=== PATIENT | female | born 1980 | race African-American/Black ===

== ENCOUNTER 2021-11-16 20:32 | Emergency (ER) | payer OTHER, SELFPAY ==
[2021-11-16] VITALS (18 sets, daily range): BP systolic 98–142; BP diastolic 54–94; PULSE 110–128; RESP 17–31; TEMP 38.8–39.4; O2SAT 93–99; BMI 46.0
--- NOTE | 2021-11-16 20:45 | DI.RAD.S_ITS ---
PROCEDURE: XR CHEST 1V INDICATIONS: sepsis TECHNIQUE: One view of the chest was acquired. COMPARISON: None. FINDINGS: Surgical changes and devices: None. Lungs and pleura: Lungs are clear. No pleural effusions or pneumothorax. Mediastinum: Mediastinal contours appear normal. Heart size is normal. Bones and chest wall: No suspicious bony lesions. Overlying soft tissues appear unremarkable. IMPRESSION: No acute cardiopulmonary process demonstrated radiographically. Dictated by: Justo Cardoza M.D. on 11/16/2021 at 22:07 Approved by: Justo Cardoza M.D. on 11/16/2021 at 22:07
--- NOTE | 2021-11-16 21:00 | PC.NURSE ---
thinks she might have a kidney infection, hx of same, c/o decreased urine output and burning took tylenol about 1800 this pm
--- NOTE | 2021-11-16 21:04 | PC.NURSE ---
In triage, pt does not appear post-ictal. Pt answering all questions appropriately and following commands. Once pt roomed in room 2, pt began arching her back and rolling her eyes back. Pt was verbal during this and followed basic commands. Pt states this is what her seizures looked like at home.
[2021-11-16 21:08] LABS: Add Manual Diff / Slide Review NO; Basophils Absolute Auto 0 /uL (0-100); Basophils Percent Auto 0.2 % (0-2); Eosinophils Absolute Auto 100 /uL (0-450); Eosinophils Percent Auto 1.6 % (2-4); Hematocrit 35.9 % (36-46); Hemoglobin 12.2 g/dL (12.0-16.0); Lymphocytes Absolute Auto 700 /uL (1100-4500); Lymphocytes Percent Auto 11.9 % (25-40); Mean Corpuscular HGB Conc 33.9 % (30-36); Mean Corpuscular Volume 82.6 fL (80-100); Monocytes Absolute Auto 400 /uL (0-900); Monocytes Percent Auto 7.3 % (3-14); Neutrophils Absolute Auto 4800 /uL (1500-7000); Platelet Count 269 X10^3/uL (150-400); Red Blood Cell Count 4.34 X10^6/uL (4.0-5.2); Red Cell Distribution Width 14.9 % (11.6-14.8); White Blood Cell Count 6.1 X10^3/uL (4.5-11.0)
[2021-11-16] MEDS: cefTRIAXone 2,000 MG in SODIUM CHLORIDE 0.9% 100 ML 200 MG IV (21:17)
[2021-11-16] MEDS: KETOROLAC 30 MG/ML VIAL 15 MG IV (21:20)
[2021-11-16] MEDS: SODIUM CHLORIDE 0.9% 1,572 ML 524 ML IV (21:20)
--- NOTE | 2021-11-16 21:25 | PC.NURSE ---
straight cath for urine specimen only
[2021-11-16 21:31] LABS: Lactate (Lactic Acid) 2.7 mmol/L (0.7-2.1)
[2021-11-16 21:33] LABS: Alanine Aminotransferase 17 IU/L (<35); Albumin 4.1 g/dL (3.5-5.0); Albumin Globulin Ratio 1.4 (1.0-2.8); Alkaline Phosphatase 58 U/L (38-126); Aspartate Aminotransferase 25 IU/L (14-36); BUN Creatinine Ratio 22.9 (6-22); Bilirubin Total 0.2 mg/dL (0.2-1.3); Blood Urea Nitrogen 19 mg/dL (7-17); Calcium 8.7 mg/dL (8.4-10.2); Carbon Dioxide 22 mmol/L (22-32); Chloride 99 mmol/L (98-107); Creatine Kinase 71 U/L (30-135); Estimated Glomerular Filt Rate > 60 mL/min (>60); Globulin 2.9 g/dL (1.7-4.1); Glucose 115 mg/dL (70-100); HEMOLYSIS 20 (0-50); Lipase 52 U/L (23-300); Potassium 4.3 mmol/L (3.4-5.1); Sodium 134 mmol/L (137-145)
[2021-11-16 21:35] LABS: Appearance Urine UA CLEAR; Bilirubin Urine UA NEGATIVE (NEGATIVE); Color Urine UA YELLOW; Glucose Urine UA NEGATIVE (Negative); Ketones Urine UA NEGATIVE (NEGATIVE); Leukocyte Esterase Urine UA NEGATIVE (NEGATIVE); Nitrite Urine UA NEGATIVE (Negative); Occult Blood Urine UA NEGATIVE (Negative); Protein Urine UA NEGATIVE (Negative); Urobilinogen Urine UA 0.2 E.U./dL (0.2)
[2021-11-16 21:37] LABS: pH Urine UA 7.5 (4.5-8.0)
[2021-11-16 21:41] LABS: Bacteria Urine None Seen; Culture Indicated Urine Cult Not Indicated; RBC Urine None Seen (0-5/HPF); Squamous Epithelial Cell Urine 0-1 /HPF (0-5/HPF); Urine Comments Microscopic Normal; WBC Urine None Seen (0-5/HPF)
[2021-11-16 21:44] LABS: Troponin I < 0.012 ng/mL (0.01-0.034)
--- NOTE | 2021-11-16 21:47 | DI.CT.S_ITS ---
PROCEDURE: CT CHEST ABD PEL W CON INDICATIONS: severe sepsis, back pain, dysuria TECHNIQUE: After the administration of intravenous contrast, 5 mm thick sections acquired from the lung apices to the symphysis. 2.5 mm thick coronal and sagittal reformats were acquired. Additional 7 mm thick coronal maximum intensity projection (MIP) reformats acquired through the lungs. Optional 10-minute delayed imaging may be performed from the kidneys to the bladder. For radiation dose reduction, the following was used: automated exposure control, adjustment of mA and/or kV according to patient size. COMPARISON: None. FINDINGS: Image quality: Excellent. CHEST: The central airways, lungs, and pleural spaces are clear. No thoracic lymphadenopathy. Normal heart size. No pericardial effusion. Thoracic aorta and main pulmonary trunk normal. Partially visualized structures of the neck base demonstrate no acute abnormality. No acute or suspicious osseous chest wall lesion. Thoracic spine within normal limits. ABDOMEN: Normal CT appearance of the liver, gallbladder, spleen, pancreas, and adrenal glands. In both kidneys there are nonspecific cystic lesions with associated renal cortical thinning and dystrophic calcifications. Findings presumably represent sequela of chronic obstruction although multi-cystic neoplastic masses could appear similar. There is otherwise no significant abnormality of the kidneys. Normal course and caliber of the ureters. No significant abnormality of stomach, small bowel, or colon. No pericolonic or mesenteric inflammatory changes. Nonaneurysmal abdominal aorta. No retroperitoneal lymphadenopathy. PELVIS: Urinary bladder is normal. Hypodense left ovarian lesions likely represent cysts. Status post hysterectomy. Pelvic osseous structures appear normal. IMPRESSION: Multi septated cystic lesions in the upper pole kidneys bilaterally, larger and more conspicuous on the left, with associated cortical thinning dystrophic calcification. This could represent sequela of prior infection and scarring, versus a component of acute obstruction or infection. Although considered unlikely, cystic neoplasm would appear similar. Correlate with urinalysis and any prior outside imaging if available. No significant abnormality otherwise. Dictated by: Justo Cardoza M.D. on 11/16/2021 at 23:29 Approved by: Justo Cardoza M.D. on 11/16/2021 at 23:33
[2021-11-16 21:49] LABS: Procalcitonin 0.05 ng/mL (<0.5)
[2021-11-16 22:06] LABS: Pregnancy Test Urine Negative (Negative)
--- NOTE | 2021-11-16 22:13 | ED.SEPSIS ---
HPI - Sepsis General Chief Complaint: Fever Mode of arrival: Wheelchair Source: patient Limitations: no limitations Evaluation Sepsis Screen: Possible Sepsis Risk Sepsis Infection Criteria Present: Suspected New Infection Narrative: 40-year-old female daily smoker presents with her and a chief complaint of headache, nasal congestion, sore throat, dry cough, shortness of breath and feeling shaky and nauseated over the course of the day. She did have a fever as high as 103. On arrival she is tachycardic and tachypneic and sepsis protocols are ordered. She denies vomiting, diarrhea, dysuria, frequency or urgency. She states she is had many urine infections in this feels similar. Review of Systems Review of Systems Narrative: GENERAL: See HPI ENT: See HPI RESPIRATORY: See HPI CARDIOVASCULAR: Denies chest pain, palpitations, orthopnea, edema, GASTROINTESTINAL: See HPI : See HPI MUSCULOSKELETAL: denies weakness, joint pain, or bony pain SKIN: Denies rash, skin lesions, or other NEUROLOGIC: Denies weakness, headache, numbness, change in speech, confusion, seizures, incoordination. PSYCHIATRIC: No concerning psychosocial issues. 12 point review of systems is negative except for those stated above Patient History Social History Smoking Status: Current every day smoker Smoking Status: Current every day smoker tobacco type: cigarettes alcohol intake frequency: 0-2 drinks per day Substance Use Type: does not use Exam Narrative Exam Narrative: GENERAL: [40] year old patient appears stated age. Well-developed patient, in mild distress. HEAD: Atraumatic. Normocephalic. EYES: Pupils equal round and reactive. Extraocular motions intact. No scleral icterus. No injection or drainage. ENT: Nose without bleeding, purulent drainage. Throat without erythema, tonsillar hypertrophy or exudate. Airway patent. NECK: Trachea midline. Non tender CARDIOVASCULAR: Tachycardic but regular rhythm without murmurs, gallops, or rubs. RESPIRATORY: Increased work of breathing, occasional dry cough, no wheezes, rales or rhonchi GASTROINTESTINAL: Abdomen soft, non-tender, nondistended. EXTREMITIES: No edema or joint tenderness. BACK: Nontender without deformity or crepitance. No flank tenderness. NEURO: AOx3. SKIN: No rash or erythema of visible areas Initial Vital Signs Initial Vital Signs: Vital Signs Temperature 103 F H 11/16/21 20:35 Pulse Rate 128 H 11/16/21 20:35 Respiratory Rate 26 H 11/16/21 20:35 Blood Pressure 119/68 11/16/21 20:35 Pulse Oximetry 98 11/16/21 20:35 Oxygen Delivery Method 11/16/21 20:35 Course Orders Ordered: ED Orders 11/16/21 20:41 RT Consult Eval and Treat NOW 11/16/21 20:45 XR chest 1V Stat 11/16/21 20:48 EKG-12 Lead Stat 11/16/21 20:50 Blood Culture Stat Complete Blood Count AUTO DIFF Stat Comprehensive Metabolic Panel Stat Lactate (Lactic Acid) Stat Lipase Stat Procalcitonin Stat Troponin & CK Cardiac Panel Stat 11/16/21 21:10 Test Urine Stat Urinalysis and Microscopic Stat 11/16/21 21:47 CT chest abd pel w con Stat 11/16/21 21:50 COVID19 -Nasal RAPID/Pre-Proc Stat Discontinued Medications Sodium Chloride (Normal Saline 0.9%) 1,000 mls @ 1,000 mls/hr IV BOLUS ONE Stop: 11/16/21 21:40 Sodium Chloride (Normal Saline 0.9%) 1,572 mls @ 524 mls/hr 30 ml/kg infuse over 3 hr (1572 ml) IV NOW ONE Stop: 11/16/21 23:44 Last Infusion: 11/16/21 23:37 Dose: 0 mls/hr Documented By: Admin: 11/16/21 21:20 Dose: 524 mls/hr Documented By: ZAID Ceftriaxone Sodium 2,000 mg/ (Sodium Chloride) 100 mls @ 200 mls/hr IV NOW ONE Stop: 11/16/21 20:46 Last Infusion: 11/16/21 21:45 Dose: 0 mls/hr Documented By: Admin: 11/16/21 21:17 Dose: 200 mls/hr Documented By: ZAID Ketorolac Tromethamine (Ketorolac 30 Mg/Ml Vial) 15 mg IV NOW ONE Stop: 11/16/21 20:46 Last Admin: 11/16/21 21:20 Dose: 15 mg Documented By: ZAID Reevaluation(s) Reevaluation #1: Patient has significant if not complete resolution of symptoms with above-stated therapies Vital Signs Vital signs: Vital Signs - 8 hr 11/16/21 20:57 11/16/21 20:57 11/16/21 21:00 Temperature Pulse Rate 120 H Respiratory Rate Blood Pressure 135/71 135/80 Pulse Oximetry 97 11/16/21 21:00 11/16/21 21:15 11/16/21 21:24 Temperature Pulse Rate 126 H 122 H Respiratory Rate Blood Pressure 133/82 Pulse Oximetry 98 99 11/16/21 21:24 11/16/21 21:30 11/16/21 21:30 Temperature Pulse Rate 123 H 120 H Respiratory Rate 24 20 Blood Pressure 138/75 Pulse Oximetry 98 98 11/16/21 21:45 11/16/21 21:45 11/16/21 21:47 Temperature 103 F H Pulse Rate 120 H Respiratory Rate 18 Blood Pressure 124/57 L Pulse Oximetry 94 11/16/21 21:45 11/16/21 22:00 11/16/21 22:00 Temperature 103 F H Pulse Rate 119 H Respiratory Rate 17 Blood Pressure 120/66 Pulse Oximetry 96 11/16/21 22:15 11/16/21 22:15 11/16/21 22:30 Temperature Pulse Rate 119 H Respiratory Rate Blood Pressure 125/71 122/69 Pulse Oximetry 94 11/16/21 22:30 11/16/21 22:45 11/16/21 22:45 Temperature Pulse Rate 115 H 111 H Respiratory Rate 31 H Blood Pressure 111/61 Pulse Oximetry 93 94 11/16/21 23:02 11/16/21 23:03 11/16/21 23:03 Temperature 101.8 F H Pulse Rate 110 H 111 H Respiratory Rate 20 Blood Pressure 101/59 L Pulse Oximetry 98 98 11/16/21 23:15 11/16/21 23:15 11/16/21 21:41 Temperature Pulse Rate 116 H 110 H Respiratory Rate 28 H 18 Blood Pressure 98/54 L 142/94 H Pulse Oximetry 97 99 Sepsis Guideline Criteria Level 1 - Infection Sepsis Infection Criteria Present: Suspected New Infection Treatment Initiated Antibiotics:: IV antimicrobials will be initiated as soon as possible after recognition of sepsis state and within one hour for both sepsis and septic shock. MDM - Sepsis Lab Data Result diagrams: 11/16/21 20:50 11/16/21 20:50 Labs: Lab Results 11/16/21 11/16/21 11/16/21 Range/Units 20:50 20:50 20:50 WBC 6.1 (4.5-11.0) X10^3/uL RBC 4.34 (4.0-5.2) X10^6/uL Hgb 12.2 (12.0-16.0) g/dL Hct 35.9 L (36-46) % MCV 82.6 (80-100) fL MCH 28.0 (26-34) PG MCHC 33.9 (30-36) % RDW 14.9 H (11.6-14.8) % Plt Count 269 (150-400) X10^3/uL Neut % (Auto) 79.0 H (50-75) % Lymph % (Auto) 11.9 L (25-40) % [place] % (Auto) 7.3 (3-14) % Eos % (Auto) 1.6 L (2-4) % Baso % (Auto) 0.2 (0-2) % Neut # (Auto) 4800 (0262-0938) /uL Lymph # (Auto) 700 L (7180-4676) /uL [place] # (Auto) 400 (0-900) /uL Eos # (Auto) 100 (0-450) /uL Baso # (Auto) 0 (0-100) /uL Sodium 134 L (137-145) mmol/L Potassium 4.3 (3.4-5.1) mmol/L Chloride 99 (98-107) mmol/L Carbon Dioxide 22 (22-32) mmol/L BUN 19 H (7-17) mg/dL Creatinine 0.83 (0.52-1.04) mg/dL Estimated GFR > 60 (>60) mL/min BUN/Creatinine Ratio 22.9 H (6-22) Glucose 115 H (70-100) mg/dL Lactate 2.7 H (0.7-2.1) mmol/L Calcium 8.7 (8.4-10.2) mg/dL Total Bilirubin 0.2 (0.2-1.3) mg/dL AST 25 (14-36) IU/L ALT 17 (<35) IU/L Alkaline Phosphatase 58 (38-126) U/L Total Creatine Kinase 71 (30-135) U/L CK-MB (CK-2) TNP CK-MB (CK-2) Rel Index TNP Troponin I < 0.012 (0.01-0.034) ng/mL Total Protein 7.0 (6.3-8.2) g/dL Albumin 4.1 (3.5-5.0) g/dL Globulin 2.9 (1.7-4.1) g/dL Albumin/Globulin Ratio 1.4 (1.0-2.8) Lipase 52 (23-300) U/L Procalcitonin 0.05 (<0.5) ng/mL Urine Color Urine Appearance Urine pH (4.5-8.0) Ur Specific [place] (1.000-1.035) Urine Protein (Negative) Urine Glucose (UA) (Negative) g/dL Urine Ketones (NEGATIVE) Urine Occult Blood (Negative) Urine Nitrate (Negative) Urine Bilirubin (NEGATIVE) Urine Urobilinogen (0.2) E.U./dL Ur Leukocyte Esterase (NEGATIVE) Urine RBC (0-5/HPF) Urine WBC (0-5/HPF) Ur Squamous Epith Cells (0-5/HPF) Urine Bacteria (None) Ur Culture Indicated? Micro UA Comment Urine Test (Negative) SARS-CoV-2 (PCR) (Negative) 11/16/21 11/16/21 11/16/21 Range/Units 21:10 21:10 21:50 WBC (4.5-11.0) X10^3/uL RBC (4.0-5.2) X10^6/uL Hgb (12.0-16.0) g/dL Hct (36-46) % MCV (80-100) fL MCH (26-34) PG MCHC (30-36) % RDW (11.6-14.8) % Plt Count (150-400) X10^3/uL Neut % (Auto) (50-75) % Lymph % (Auto) (25-40) % [place] % (Auto) (3-14) % Eos % (Auto) (2-4) % Baso % (Auto) (0-2) % Neut # (Auto) (1485-1143) /uL Lymph # (Auto) (2811-5203) /uL [place] # (Auto) (0-900) /uL Eos # (Auto) (0-450) /uL Baso # (Auto) (0-100) /uL Sodium (137-145) mmol/L Potassium (3.4-5.1) mmol/L Chloride (98-107) mmol/L Carbon Dioxide (22-32) mmol/L BUN (7-17) mg/dL Creatinine (0.52-1.04) mg/dL Estimated GFR (>60) mL/min BUN/Creatinine Ratio (6-22) Glucose (70-100) mg/dL Lactate (0.7-2.1) mmol/L Calcium (8.4-10.2) mg/dL Total Bilirubin (0.2-1.3) mg/dL AST (14-36) IU/L ALT (<35) IU/L Alkaline Phosphatase (38-126) U/L Total Creatine Kinase (30-135) U/L CK-MB (CK-2) CK-MB (CK-2) Rel Index Troponin I (0.01-0.034) ng/mL Total Protein (6.3-8.2) g/dL Albumin (3.5-5.0) g/dL Globulin (1.7-4.1) g/dL Albumin/Globulin Ratio (1.0-2.8) Lipase (23-300) U/L Procalcitonin (<0.5) ng/mL Urine Color Yellow Urine Appearance Clear Urine pH 7.5 (4.5-8.0) Ur Specific [place] 1.010 (1.000-1.035) Urine Protein Negative (Negative) Urine Glucose (UA) Negative (Negative) g/dL Urine Ketones Negative (NEGATIVE) Urine Occult Blood Negative (Negative) Urine Nitrate Negative (Negative) Urine Bilirubin Negative (NEGATIVE) Urine Urobilinogen 0.2 (0.2) E.U./dL Ur Leukocyte Esterase Negative (NEGATIVE) Urine RBC None seen (0-5/HPF) Urine WBC None seen (0-5/HPF) Ur Squamous Epith Cells 0-1 /hpf (0-5/HPF) Urine Bacteria None seen (None) Ur Culture Indicated? Cult not indicated Micro UA Comment Microscopic normal Urine Test Negative (Negative) SARS-CoV-2 (PCR) Positive H (Negative) 11/16/21 Range/Units 23:30 WBC (4.5-11.0) X10^3/uL RBC (4.0-5.2) X10^6/uL Hgb (12.0-16.0) g/dL Hct (36-46) % MCV (80-100) fL MCH (26-34) PG MCHC (30-36) % RDW (11.6-14.8) % Plt Count (150-400) X10^3/uL Neut % (Auto) (50-75) % Lymph % (Auto) (25-40) % [place] % (Auto) (3-14) % Eos % (Auto) (2-4) % Baso % (Auto) (0-2) % Neut # (Auto) (5132-0568) /uL Lymph # (Auto) (8276-9485) /uL [place] # (Auto) (0-900) /uL Eos # (Auto) (0-450) /uL Baso # (Auto) (0-100) /uL Sodium (137-145) mmol/L Potassium (3.4-5.1) mmol/L Chloride (98-107) mmol/L Carbon Dioxide (22-32) mmol/L BUN (7-17) mg/dL Creatinine (0.52-1.04) mg/dL Estimated GFR (>60) mL/min BUN/Creatinine Ratio (6-22) Glucose (70-100) mg/dL Lactate 1.6 (0.7-2.1) mmol/L Calcium (8.4-10.2) mg/dL Total Bilirubin (0.2-1.3) mg/dL AST (14-36) IU/L ALT (<35) IU/L Alkaline Phosphatase (38-126) U/L Total Creatine Kinase (30-135) U/L CK-MB (CK-2) CK-MB (CK-2) Rel Index Troponin I (0.01-0.034) ng/mL Total Protein (6.3-8.2) g/dL Albumin (3.5-5.0) g/dL Globulin (1.7-4.1) g/dL Albumin/Globulin Ratio (1.0-2.8) Lipase (23-300) U/L Procalcitonin (<0.5) ng/mL Urine Color Urine Appearance Urine pH (4.5-8.0) Ur Specific [place] (1.000-1.035) Urine Protein (Negative) Urine Glucose (UA) (Negative) g/dL Urine Ketones (NEGATIVE) Urine Occult Blood (Negative) Urine Nitrate (Negative) Urine Bilirubin (NEGATIVE) Urine Urobilinogen (0.2) E.U./dL Ur Leukocyte Esterase (NEGATIVE) Urine RBC (0-5/HPF) Urine WBC (0-5/HPF) Ur Squamous Epith Cells (0-5/HPF) Urine Bacteria (None) Ur Culture Indicated? Micro UA Comment Urine Test (Negative) SARS-CoV-2 (PCR) (Negative) Point of Care Testing Glucose POC 121 Imaging Data Chest x-ray: Radiologist's Impression: [address] [address] XRay Report Signed Patient: Katelynn Valentine MR#: [id number] : 1980 Acct:[id number] Age/Sex: 40 / F Date of Service: 11/16/21 Loc: ED Accession Number: [id number] ?? Procedure: XR chest 1V Ordering Provider: Kelby Peacock D.O. PROCEDURE:? XR CHEST 1V ? INDICATIONS:? sepsis ? TECHNIQUE:? One view of the chest was acquired.? ? COMPARISON:? None. ? FINDINGS:? ? Surgical changes and devices:? None.? ? Lungs and pleura:? Lungs are clear.? No pleural effusions or pneumothorax.? ? Mediastinum:? Mediastinal contours appear normal.? Heart size is normal.? ? Bones and chest wall:? No suspicious bony lesions.? Overlying soft tissues appear unremarkable.? ? IMPRESSION:? No acute cardiopulmonary process demonstrated radiographically. ? ? Dictated by: Justo Cardoza M.D. on 11/16/2021 at 22:07 ? ? Approved by: Justo Cardoza M.D. on 11/16/2021 at 22:07 ? MDM Narrative Medical decision making narrative: 40-year-old female presents with fever, shaking chills, tachycardia and body aches over the afternoon. She meets sepsis criteria and is given fluids at 30 milliliters/kilogram per ideal weight given BMI greater than 30, antibiotics ordered, blood cultures, urine and chest x-ray. Initial lactate is elevated and resuscitation continues. Upon completion of 1st round of therapies patient feels essentially a complete resolution of symptoms. Heart rate has normalized respiration is normalized blood pressure is normal, lactate down to 1.3. She has no increased work of breathing, no pain and wants to leave. She understands return precautions and has had questions answered to her apparent satisfaction Discharge Plan Departure Patient Disposition: Home Clinical Impression: COVID-19 Instructions: DI for COVID-19 (Suspected or Confirmed ) Activity Restrictions/Additional Instructions: *You have been diagnosed with [ COVID-19] *What to do: ?* per recommendations from the CDC and the [facility] Department of Health ?* stay home except to get medical care. ?Restrict activities outside your home, except for getting medical care. ?Do not go to work, school, or public areas. ?Avoid using public transportation, ride sharing, or taxis. ?* separate yourself from other people in your home. ?* call ahead before visiting your doctor ?* Wear a facemask ?* Cover your coughs and sneezes ?* Clean your hands often ?* Avoid sharing household items ?* Clean all high-touch services every day ?* Monitor your symptoms and seek prompt medical attention if your illness is worsening, particularly with difficulty in breathing. You may discontinue your isolation when: ?1. You have been fever-free for at least 24 hours without the use of fever reducing medication, AND ?2. Your symptoms are getting better, AND ?3. At least 5 days have passed since symptoms first appeared ?4. If you have fever, continue to stay home until fever resolves Individuals with laboratory confirmed COVID-19 who have not had any symptoms may discontinue home isolation when at least 5 days have passed since the date of their first COVID-19 diagnostic test and have had no subsequent illness You should notifiy any friends and family that have been in close contact *If up to date on COVID Vaccines, then they do not need to quarantine unless symptoms develop. Get tested on day 5 (or sooner if symptoms develop). Take precautions and watch for symptoms until day 10 *If NOT up to date on COVID Vaccines, then CDC recommends quarantine for at least 5 full days. Wear a well fitted mask at home if you must be around others. If they ?develop symptoms they should get tested. If they remain asymptomatic they should get tested on day 5. They should take precautions and monitor for symptoms until day 10. Visit Report Forms: Patient Portal/API
[2021-11-16 22:19] LABS: COVID19 -Nasal RAPID POSITIVE (Negative)
[2021-11-16 23:01] LABS: Reflexed Lactate in 2 Hours Y
--- NOTE | 2021-11-16 23:38 | PC.NURSE ---
pt ambulatory to bathroom, states she is feeling better and just wants to go home
[2021-11-16 23:45] LABS: Lactate 2HR (Lactic Acid Rflx) 1.6 mmol/L (0.7-2.1)
== END 2021-11-17 00:46 | disposition home or self-care (01) ==
PROVIDERS: Emergency Provider Emergency Medicine
DX: U07.1 COVID-19 (principal); R50.9 Fever, unspecified; R00.0 Tachycardia, unspecified
CPT/HCPCS: 36415; 51701; 71045; 71260; 74177; 80053; 81001; 81025; 82550; 82962; 83605; 83690; 84145; 84484; 85025; 87040; 87635; 93005; 96365; 96375; 99284; C9803; J0696; J1885; Q9967

== ENCOUNTER 2023-12-04 19:21 | Emergency (ER) | payer OTHER, SELFPAY ==
[2023-12-04 19:28] VITALS: BP 176/86; PULSE 77; RESP 16; TEMP 36.4; O2SAT 99; BMI 51.3
--- NOTE | 2023-12-04 19:31 | DI.RAD.S_ITS ---
PROCEDURE: XR CLAVICLE LT INDICATIONS: fall on left arm TECHNIQUE: 2 views of the clavicle were acquired. COMPARISON: None. FINDINGS: Bones: Possible nondisplaced fracture of the midclavicle. Soft tissues: No suspicious soft tissue calcifications. IMPRESSION: Possible nondisplaced fracture of the midclavicle. Correlate with point tenderness. Dictated by: Hari Savage M.D. on 12/04/2023 at 20:45 Approved by: Hari Savage M.D. on 12/04/2023 at 20:46
--- NOTE | 2023-12-04 21:55 | ED.UPPEXIN ---
HPI - Extremity Injury (Upper) General Chief Complaint: Extremity Injury, Upper Stated Complaint: left collarbone/arm pain Time Seen by Provider: 12/04/23 21:51 Source: patient, RN notes reviewed and old records reviewed Mode of arrival: Ambulatory Limitations: no limitations History of Present Illness HPI narrative: 42-year-old female history of tobacco use, mood disorder who presents with complaint of ground level fall. Patient was walking her dogs 1 which is quite large it pulled on the leash and she fell forward on outstretched arm. Patient complains of pain throughout her entire right upper extremity but particularly mid clavicle. Patient states she was able to move her lower arm but it is uncomfortable. She has some numbness and tingling but describes patchy areas of numbness and tingling. Patient denies any weakness. Denies hitting her head no neck pain, no loss of consciousness. Denies any chest pain or shortness of breath. States she does have little bit of bruising on her belly. Denies any active abdominal pain. No other GI or urinary symptoms. Denies other injuries. She had x-rays at an outside facility of her shoulder elbow and forearm which she states were negative but has had persistent pain presents for re-evaluation. Patient takes Depakote, possibly lamotrigine, Seroquel, gabapentin, NovoLog, Lantus, Lipitor and hypothyroidism medication. States allergic to penicillin. Primary care is at at [facility] in [place]. Patient lives in [place]. Patient states she was given prescription for naproxen but has not been helpful. Related Data Previous Rx's Medication Instructions Recorded hydrocodone 5 mg-acetaminophen 325 1 tab PO Q6H PRN pain #10 tabs 12/04/23 mg tablet Allergies Allergy/AdvReac Type Severity Reaction Status Date / Time Penicillins Allergy Anaphylaxis Verified 12/04/23 19:28 [id number] Antimigraine Allergy Anaphylaxis Verified 12/04/23 19:28 Agents Sulfa (Sulfonamide AdvReac Vomiting Verified 12/04/23 19:28 Antibiotics) Review of Systems Review of Systems ROS Unobtainable: All systems reviewed & are unremarkable except as noted in HPI and below Patient History Social History Smoking Status: Current every day smoker Smoking Status: Current every day smoker tobacco type: cigarettes alcohol intake frequency: 0-2 drinks per day Substance Use Type: does not use Exam Narrative Exam Narrative: GEN:Patient appears in[mild/moderate/severe] distress. HEAD: No evidence of trauma, no raccoon/Reardon sign. NECK: Nontender, painless range of motion, trachea midline Negative Nexus criteria, no midline line tenderness, distracting injury, altered mental status, neuro deficit, recent EtOH. EYES: PERRLA, EOMI ENT: External inspection normal, trachea is midline, Nares are clear, no dental or oral injury, airway is normal and with normal occlusion, No bony tenderness RESP: Chest is nontender and has symmetric movement, no ecchymosis, breath sounds are normal no crackles, wheezes or rales CVS: Heart sounds are normal, no murmur noted, No JVD. ABG/GI: Nontender, soft, normal bowel sounds, no distention, no organomegaly NEURO: Oriented AOx3, neuro is grossly intact, sensation and motor is normal all 4 extremities moving, cranial nerves II through XII are intact, GCS is 15 PSYCH: Normal mood and affect SKIN: Intact, warm and dry, no crepitus and without decubitus BACK: No CVA tenderness, no vertebral tenderness, no step-off's, no crepitus EXT: Patient has tenderness over left mid clavicle, has some mild tenderness over shoulder humerus elbow wrist hand but has generalized muscle in that particularly tiny bony area. 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 2+ radial pulse. Full range of motion of fingers and wrist. Cap refills less than 2 seconds. No significant ecchymosis appreciated although patient had a sling in place. Patient has normal range of motion of right upper and bilateral lower extremities. Initial Vital Signs Initial Vital Signs: Vital Signs Temperature 97.6 F 12/04/23 19:28 Pulse Rate 77 12/04/23 19:28 Respiratory Rate 16 12/04/23 19:28 Blood Pressure 176/86 H 12/04/23 19:28 Pulse Oximetry 99 12/04/23 19:28 Oxygen Delivery Method Room Air 12/04/23 19:28 Course Orders Ordered: Discontinued Medications Hydrocodone Bitart/Acetaminophen (Hydrocodone/Acet 5/325 Prepack) 1 bottle MISC DIRECTED ONE Stop: 12/04/23 22:20 Last Admin: 12/04/23 22:25 Dose: 1 bottle Documented By: NICOEL Vital Signs Vital signs: Vital Signs - 8 hr 12/04/23 19:28 Temperature 97.6 F Pulse Rate 77 Respiratory Rate 16 Blood Pressure 176/86 H Pulse Oximetry 99 Oxygen Delivery Method Room Air MDM - Extremity Injury (Upper) Imaging Data Extremity x-ray #1: Radiologist's Impression: [address] [address] XRay Report Signed Patient: Katelynn Valentine MR#: [id number] : 1980 Acct:[id number] Age/Sex: 42 / F Date of Service: 12/04/23 Loc: ED Accession Number: [id number] Procedure: XR clavicle LT Ordering Provider: Ashtyn Paul D.O. PROCEDURE: XR CLAVICLE LT INDICATIONS: fall on left arm TECHNIQUE: 2 views of the clavicle were acquired. COMPARISON: None. FINDINGS: Bones: Possible nondisplaced fracture of the midclavicle. Soft tissues: No suspicious soft tissue calcifications. IMPRESSION: Possible nondisplaced fracture of the midclavicle. Correlate with point tenderness. Dictated by: Hari Savage M.D. on 12/04/2023 at 20:45 Approved by: Hari Savage M.D. on 12/04/2023 at 20:46 [facility] Narrative Medical decision making narrative: Clavicle x-ray shows possible nondisplaced fracture mid clavicle, correlates with patient point tenderness. Discussed plan for care, return precautions and need for follow up with primary care. Discharge Plan Departure Patient Disposition: Home Clinical Impression: Clavicle fracture Instructions: DI for Clavicle Fracture-Adult Activity Restrictions/Additional Instructions: Follow up for recheck with your primary care physician. You can take continue naproxen as prescribed for your pain. If inadequate for pain you can either take Tylenol a 1000 mg every 6 hours and/or Otto 1 tablet every 6 hours as needed for pain. This medication can make you sleepy do not drive, perform hazardous activities or make any major decisions while taking it. This medication will make you constipated please take a stool softener once to twice daily until stools are soft and regular. Prescription sent to [facility] in [place] You do not have to use a sling but can use one if it is helpful. Make sure to take your shoulder through range of motion at least several times daily gently to prevent frozen shoulder. Elevated affected body part to decrease swelling. OK to use ice pack on the affected body part. Use for 15-20 minutes each time, for 5-6x per day. If you develop worsening pain, numbness, tingling, discoloration of the affected body part, adjust the sling and either see your doctor for an urgent re-assessment, or return to the Emergency Department. Return to the Emergency Department for any new or worsening symptoms. Prescriptions: New hydrocodone-acetaminophen 5-325 mg tablet 1 tab PO Q6H PRN (Reason: pain) Qty: 10 0RF Stand Alone Forms: Patient Portal/API
[2023-12-04] MEDS: HYDROCODONE/ACET 5/325 PREPACK 1 BOTTLE MISC (22:25)
== END 2023-12-04 22:32 | disposition home or self-care (01) ==
PROVIDERS: Emergency Provider Emergency Medicine
DX: S42.002A Fracture of unspecified part of left clavicle, initial encounter for closed fracture (principal); W18.30XA Fall on same level, unspecified, initial encounter; Y93.K1 Activity, walking an animal
CPT/HCPCS: 73000; 99281; 99283

== ENCOUNTER 2024-05-16 17:55 | Emergency (ER) | payer OTHER, SELFPAY ==
[2024-05-16 18:00] VITALS: BP 163/100; PULSE 81; RESP 18; TEMP 36.2; O2SAT 98; BMI 51.3
[2024-05-16 18:41] LABS: Add Manual Diff / Slide Review NO; Basophils Absolute Auto 100 /uL (0-100); Basophils Percent Auto 0.9 % (0-2); Eosinophils Absolute Auto 200 /uL (0-450); Eosinophils Percent Auto 2.4 % (2-4); Hematocrit 37.6 % (36-46); Hemoglobin 12.5 g/dL (12.0-16.0); Lymphocytes Absolute Auto 3600 /uL (1100-4500); Lymphocytes Percent Auto 40.9 % (25-40); Mean Corpuscular HGB Conc 33.2 % (30-36); Mean Corpuscular Hemoglobin 28.5 PG (26-34); Mean Corpuscular Volume 85.7 fL (80-100); Monocytes Absolute Auto 600 /uL (0-900); Monocytes Percent Auto 6.3 % (3-14); Neutrophils Absolute Auto 4400 /uL (1500-7000); Neutrophils Percent Auto 49.5 % (50-75); Platelet Count 298 X10^3/uL (150-400); Red Blood Cell Count 4.39 X10^6/uL (4.0-5.2); White Blood Cell Count 8.9 X10^3/uL (4.5-11.0)
--- NOTE | 2024-05-16 18:47 | EKG_ITS ---
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
[2024-05-16 19:04] LABS: Alanine Aminotransferase 30 IU/L (<35); Albumin 4.5 g/dL (3.5-5.0); Albumin Globulin Ratio 1.3 (1.0-2.8); Alkaline Phosphatase 64 U/L (38-126); BUN Creatinine Ratio 33.3 (6-22); Bilirubin Total 0.5 mg/dL (0.2-1.3); Blood Urea Nitrogen 26 mg/dL (7-17); Calcium 9.7 mg/dL (8.4-10.2); Carbon Dioxide 23 mmol/L (22-32); Chloride 101 mmol/L (98-107); Estimated Glomerular Filt Rate > 60 mL/min (>60); Globulin 3.5 g/dL (1.7-4.1); Glucose 217 mg/dL (70-100); HEMOLYSIS 65 (0-50); Lipase 84 U/L (23-300); Sodium 135 mmol/L (137-145)
[2024-05-16 19:05] LABS: Aspartate Aminotransferase 42 IU/L (14-36); Potassium 4.7 mmol/L (3.4-5.1)
--- NOTE | 2024-05-16 19:07 | ED.ABDPAIN ---
HPI - Abdominal Pain General Chief Complaint: Abdominal Pain Stated Complaint: nause/vomitting UpperR ABD px PCP sent in Time Seen by Provider: 05/16/24 19:07 Source: patient Mode of arrival: Ambulatory History of Present Illness HPI narrative: 43-year-old female with history of remote EGD diagnosis stomach ulcer, not on chronic/recent antacid therapy, complains of one-week duration of epigastric area discomfort that seems to be worse with eating, particularly with fatty foods, no prior gallbladder surgery, concerned about her gallbladder. She has had nausea with occasional nonbloody emesis, also some loose stools. No cough, sore throat, ear discomfort. No recent antibiotics. No fevers or chills. No shortness of breath or chest pain. Pain does radiate somewhat posterior from her epigastrium. No significant change with changes of position. She is tried Pepto-Bismol with little relief. No other treatments tried. Related Data Previous Rx's Medication Instructions Recorded hydrocodone 5 mg-acetaminophen 325 1 tab PO Q6H PRN pain #10 tabs 12/04/23 mg tablet omeprazole 20 mg capsule,delayed 20 mg PO DAILY upper abdominal 05/16/24 release pain 30 days #30 caps Allergies Allergy/AdvReac Type Severity Reaction Status Date / Time Penicillins Allergy Anaphylaxis Verified 12/04/23 19:28 [id number] Antimigraine Allergy Anaphylaxis Verified 12/04/23 19:28 Agents Sulfa (Sulfonamide AdvReac Vomiting Verified 12/04/23 19:28 Antibiotics) Patient History Social History Smoking Status: Current every day smoker Smoking Status: Current every day smoker tobacco type: vaping alcohol intake frequency: 0-2 drinks per day Exam Narrative Exam Narrative: GENERAL: Well-developed patient, in mild distress. HEAD: Atraumatic. Normocephalic. EYES: Pupils equal round and reactive. Extraocular motions intact. No scleral icterus. No injection or drainage. ENT: Nose without bleeding, purulent drainage. Throat without erythema, tonsillar hypertrophy or exudate. Airway patent. NECK: Trachea midline. Non tender CARDIOVASCULAR: Regular rate and rhythm without murmurs, gallops, or rubs. RESPIRATORY: Clear to auscultation. Breath sounds equal bilaterally. No wheezes, rales, or rhonchi. GASTROINTESTINAL: Some tenderness in epigastrium, less so right upper quadrant. No guarding or rebound, nondistended. Normal bowel tones without rushes or tinkles. EXTREMITIES: No edema or joint tenderness. BACK: Nontender without deformity or crepitance. No flank tenderness. NEURO: AOx3. Motor functions grossly nonfocal SKIN: No rash or erythema of visible areas Initial Vital Signs Initial Vital Signs: Vital Signs Temperature 97.1 F L 05/16/24 18:00 Pulse Rate 81 05/16/24 18:00 Respiratory Rate 18 05/16/24 18:00 Blood Pressure 163/100 H 05/16/24 18:00 Pulse Oximetry 98 05/16/24 18:00 Oxygen Delivery Method Room Air 05/16/24 18:00 Course Orders Ordered: ED Orders 05/16/24 18:05 EKG-12 Lead Stat 05/16/24 18:18 Complete Blood Count AUTO DIFF Stat Comprehensive Metabolic Panel Stat Lipase Stat 05/16/24 19:10 Urinalysis and Microscopic Stat 05/16/24 19:16 US abdomen limited Stat 05/16/24 19:58 CT abdomen pelvis w con Stat Discontinued Medications Famotidine (Famotidine 20 Mg/2 Ml Vial) 20 mg IV NOW HUNTER Famotidine (Famotidine 20 Mg/2 Ml Vial) 20 mg IV NOW ONE Stop: 05/16/24 19:31 Last Admin: 05/16/24 19:28 Dose: 20 mg Documented By: KRYSTLE Ondansetron HCl (Ondansetron 4 Mg/2 Ml Inj) 4 mg IV NOW PRN PRN Reason: Nausea And Vomiting Ondansetron HCl (Ondansetron 4 Mg Odt) 4 mg PO NOW PRN PRN Reason: Nausea And Vomiting Ondansetron HCl (Ondansetron 4 Mg/2 Ml Inj) 4 mg IV NOW ONE Stop: 05/16/24 19:16 Last Admin: 05/16/24 19:28 Dose: 4 mg Documented By: KRYSTLE Vital Signs Vital signs: Vital Signs - 8 hr 05/16/24 20:49 05/16/24 20:49 05/16/24 21:00 Pulse Rate 74 Blood Pressure 128/74 130/71 Pulse Oximetry 99 Oxygen Delivery Method 05/16/24 21:00 Pulse Rate 75 Blood Pressure Pulse Oximetry 98 Oxygen Delivery Method Room Air MDM - Abdominal Pain Lab Data Attestation: I reviewed the patient's lab results. Lab results narrative: White blood cell count 8900, hemoglobin 12.5, platelets adequate. Glucose 217 noted. Remainder of basic metabolic panel unremarkable. Slight AST elevation, other liver function tests normal. Lipase normal. Urine/hCG negative. 05/16/24 18:18 05/16/24 18:18 Labs: Lab Results 05/16/24 05/16/24 Range/Units 18:18 19:10 WBC 8.9 (4.5-11.0) X10^3/uL RBC 4.39 (4.0-5.2) X10^6/uL Hgb 12.5 (12.0-16.0) g/dL Hct 37.6 (36-46) % MCV 85.7 (80-100) fL MCH 28.5 (26-34) PG MCHC 33.2 (30-36) % RDW 15.0 H (11.6-14.8) % Plt Count 298 (150-400) X10^3/uL Neut % (Auto) 49.5 L (50-75) % Lymph % (Auto) 40.9 H (25-40) % [place] % (Auto) 6.3 (3-14) % Eos % (Auto) 2.4 (2-4) % Baso % (Auto) 0.9 (0-2) % Neut # (Auto) 4400 (6570-6983) /uL Lymph # (Auto) 3600 (4787-6796) /uL [place] # (Auto) 600 (0-900) /uL Eos # (Auto) 200 (0-450) /uL Baso # (Auto) 100 (0-100) /uL Sodium 135 L (137-145) mmol/L Potassium 4.7 (3.4-5.1) mmol/L Chloride 101 (98-107) mmol/L Carbon Dioxide 23 (22-32) mmol/L BUN 26 H (7-17) mg/dL Creatinine 0.78 (0.52-1.04) mg/dL Estimated GFR > 60 (>60) mL/min BUN/Creatinine Ratio 33.3 H (6-22) Glucose 217 H (70-100) mg/dL Calcium 9.7 (8.4-10.2) mg/dL Total Bilirubin 0.5 (0.2-1.3) mg/dL AST 42 H (14-36) IU/L ALT 30 (<35) IU/L Alkaline Phosphatase 64 (38-126) U/L Total Protein 8.0 (6.3-8.2) g/dL Albumin 4.5 (3.5-5.0) g/dL Globulin 3.5 (1.7-4.1) g/dL Albumin/Globulin Ratio 1.3 (1.0-2.8) Lipase 84 (23-300) U/L Urine Color Yellow Urine Appearance Clear Urine pH 5.5 (4.5-8.0) Ur Specific [place] 1.020 (1.000-1.035) Urine Protein Negative (Negative) Urine Glucose (UA) Negative (Negative) g/dL Urine Ketones Negative (NEGATIVE) Urine Occult Blood Negative (Negative) Urine Nitrate Negative (Negative) Urine Bilirubin Negative (NEGATIVE) Urine Urobilinogen 0.2 (0.2) E.U./dL Ur Leukocyte Esterase Negative (NEGATIVE) Urine RBC None seen (0-5/HPF) Urine WBC None seen (0-5/HPF) Ur Squamous Epith Cells 1-5 /hpf (0-5/HPF) Urine Bacteria Moderate (10-30) H (None) Ur Culture Indicated? Cult not indicated Vol Urine Centrifuged 10ml (spun) Point of care testing: Point of Care Testing Test Results Negative Urine Dip Bedside Urine Glucose Negative Bedside Urine Bilirubin - Negative Bedside Urine Ketone - Negative Urine Specific [place] 1.020 Bedside Urine Occult Blood - Negative Bedside Urine pH 6.0 Bedside Urine Protein - Negative Bedside Urine Urobilinogen - Negative Bedside Urine Nitrite - Negative Bedside Urine Leukocytes - Negative Esterase Imaging Data CT scan - abdomen/pelvis: Radiologist's Impression: [address] [address] [address] Scan Report Signed Patient: Katelynn Valentine MR#: [id number] : 1980 Acct:[id number] Age/Sex: 43 / F Date of Service: 05/16/24 Loc: ED Accession Number: [id number] Procedure: CT abdomen pelvis w con Ordering Provider: Ben Castro MD PROCEDURE: CT ABDOMEN PELVIS W CON INDICATIONS: right upper abd pain TECHNIQUE: After the administration of intravenous contrast, axial sections acquired from the lung bases to the pubic symphysis. Coronal and sagittal reformats were performed. For radiation dose reduction, the following was used: automated exposure control, adjustment of mA and/or kV according to patient size. COMPARISON: [facility], CT, CT CHEST ABD PEL W CON, 11/16/2021, 22:57. FINDINGS: Image quality: Diagnostic. Lower Chest: No significant findings. ABDOMEN: Liver: No solid mass. Steatosis. Gallbladder: No radiopaque gallstones or wall thickening. Biliary ducts: No biliary dilation. Pancreas: No ductal dilation. Spleen: Size is within normal limits. Adrenal Glands: No adrenal nodules. Kidneys and Ureters: No hydronephrosis. Bilateral renal cystic foci with area of calcifications most prominent on the left. Areas asymmetric renal atrophy and cortical thinning most prominent Stomach and Bowel: Normal colonic caliber, without significant wall thickening. Colonic diverticula without inflammatory change. Peritoneum: No abnormal intraperitoneal fluid. No free air. Ventral Wall: No significant ventral hernia. Abdominal Nodes: No retroperitoneal or mesenteric adenopathy by size criteria. Vessels: Aorta and inferior vena cava are normal in size. PELVIS: Pelvic Organs: Unremarkable. Bladder: No bladder wall thickening, accounting for underdistention. Pelvic Nodes: No enlarged lymph nodes. Miscellaneous: No inguinal hernias are seen. Bones: No aggressive osseous abnormality. IMPRESSION: Hepatic steatosis. Gallbladder is unremarkable. Areas of cystic change, atrophy and calcification within the kidneys bilaterally suggestive of prior infection, inflammation or potentially obstruction. Wall cystic malignancy cannot be definitively excluded is felt to be less likely given. Appearance of stability. Dictated by: Joyce Velarde M.D. on 05/16/2024 at 20:44 Approved by: Joyce Velarde M.D. on 05/16/2024 at 20:47 US - abdomen: Radiologist's Impression: [address] [address] Ultrasound Report Signed Patient: Katelynn Valentine MR#: [id number] : 1980 Acct:[id number] Age/Sex: 43 / F Date of Service: 05/16/24 Loc: ED Accession Number: [id number] Procedure: US abdomen limited Ordering Provider: Ben Castro MD PROCEDURE: US ABDOMEN LIMITED INDICATIONS: RUQ abd pain, worse with food TECHNIQUE: Real-time scanning was performed of the abdominal and retroperitoneal organs, with image documentation. COMPARISON: None. FINDINGS: Liver: Liver measures 18.1 cm with steatosis. Gallbladder: No gallstones. No wall thickening. No pericholecystic edema. Negative sonographic Joseph's sign. Biliary ducts: Intrahepatic bile ducts are non-dilated. Extrahepatic bile duct caliber measures 1 5 mm. Normal is 6-7 mm or less in diameter, or 10 mm or less post-cholecystectomy. Pancreas: Visualized portions of the pancreas are sonographically normal. Miscellaneous: No free abdominal fluid. IMPRESSION: Hepatic steatosis. Gallbladder is unremarkable. Dictated by: Joyce Velarde M.D. on 05/16/2024 at 20:17 Approved by: Joyce Velarde M.D. on 05/16/2024 at 20:18 ECG Data Attestation: I personally reviewed and interpreted this ECG as follows: Interpretation: Normal sinus rhythm with rate of 77, no obvious ST segment elevation or depression changes. Flat T-waves lead 3, upright in leads F and 2. PA 154, QRS 88, QTC 425. MDM Narrative Medical decision making narrative: 43-year-old female with epigastric pain, history of remote ulcers by EGD, no recent antacid use, one-week duration epigastric and right upper quadrant and posterior back discomfort. Afebrile, sirs screen negative. Worsening symptoms with food, concern for possible gallbladder etiology, no prior gallbladder procedures/imaging. Labs unremarkable. Ultrasound right upper quadrant ordered. IV Zofran, IV Pepcid. Ultrasound right upper quadrant abdomen, sono tech verbal report negative, fatty liver incidentally noted. Radiology report pending. Right upper quadrant abdominal ultrasound Radiology report, hepatic steatosis, unremarkable gallbladder, see report copy. Relayed to patient the preliminary report from the oxygen equipment technician, she would like to proceed with additional imaging. CT abdomen and pelvis ordered. CT abdomen and pelvis, hepatic steatosis again noted, unremarkable gallbladder, possible chronic renal changes. Copy of the report given to the patient with discussion of the results. She has no UTI symptoms, afebrile, epigastric area of discomfort would be atypical for urinary tract infection at this time. We will hold on antibiotics for now. Consider course of antacid, we discussed omeprazole proton pump inhibitor medication, might require follow up endoscopy. Could consider HIDA scanning if gallbladder disease suspected. Discharged home with family, prescription sent to her pharmacy. Follow up with PCP this next week advised for further follow up plan. Copy of her ultrasound and CT reports provided for discharge as well. Discharge Plan Departure Patient Disposition: Home Clinical Impression: Epigastric abdominal pain Instructions: DI for Epigastric Pain Activity Restrictions/Additional Instructions: Upper abdominal central pain for the last week or so, worse with food, particularly fatty foods, suspicious for gallbladder disease. No prior gallbladder surgery. Ultrasound of the gallbladder unremarkable except for fatty liver changes. CT abdomen and pelvis also showed fatty liver changes, unremarkable gallbladder, there was some description of possible chronic appearing kidney changes, consideration to compare with old imaging. No urinary tract infection symptoms at this time. Consider course of oral antacid such as omeprazole. Consider upper endoscopy. Recheck symptoms with your regular doctor this week, and to coordinate further follow up diagnostic testing as an outpatient. Return earlier to this/nearest emergency department for any change worsening symptoms or any concerns prior Prescriptions: New omeprazole 20 mg capsule,delayed release(DR/EC) 20 mg PO DAILY 30 Days Qty: 30 0RF No Action hydrocodone-acetaminophen 5-325 mg tablet 1 tab PO Q6H PRN (Reason: pain) Qty: 10 0RF Stand Alone Forms: Patient Portal/API/Survey
--- NOTE | 2024-05-16 19:16 | DI.US.S_ITS ---
PROCEDURE: US ABDOMEN LIMITED INDICATIONS: RUQ abd pain, worse with food TECHNIQUE: Real-time scanning was performed of the abdominal and retroperitoneal organs, with image documentation. COMPARISON: None. FINDINGS: Liver: Liver measures 18.1 cm with steatosis. Gallbladder: No gallstones. No wall thickening. No pericholecystic edema. Negative sonographic Joseph's sign. Biliary ducts: Intrahepatic bile ducts are non-dilated. Extrahepatic bile duct caliber measures 1 5 mm. Normal is 6-7 mm or less in diameter, or 10 mm or less post-cholecystectomy. Pancreas: Visualized portions of the pancreas are sonographically normal. Miscellaneous: No free abdominal fluid. IMPRESSION: Hepatic steatosis. Gallbladder is unremarkable. Dictated by: Joyce Velarde M.D. on 05/16/2024 at 20:17 Approved by: Joyce Velarde M.D. on 05/16/2024 at 20:18
[2024-05-16] MEDS: FAMOTIDINE 20 MG/2 ML VIAL IV (19:28)
[2024-05-16] MEDS: ONDANSETRON 4 MG/2 ML INJ IV (19:28)
[2024-05-16 19:46] LABS: Appearance Urine UA CLEAR; Bilirubin Urine UA NEGATIVE (NEGATIVE); Color Urine UA YELLOW; Glucose Urine UA NEGATIVE (Negative); Ketones Urine UA NEGATIVE (NEGATIVE); Leukocyte Esterase Urine UA NEGATIVE (NEGATIVE); Nitrite Urine UA NEGATIVE (Negative); Occult Blood Urine UA NEGATIVE (Negative); Protein Urine UA NEGATIVE (Negative); Urobilinogen Urine UA 0.2 E.U./dL (0.2)
[2024-05-16 19:50] LABS: pH Urine UA 5.5 (4.5-8.0)
--- NOTE | 2024-05-16 19:58 | DI.CT.S_ITS ---
PROCEDURE: CT ABDOMEN PELVIS W CON INDICATIONS: right upper abd pain TECHNIQUE: After the administration of intravenous contrast, axial sections acquired from the lung bases to the pubic symphysis. Coronal and sagittal reformats were performed. For radiation dose reduction, the following was used: automated exposure control, adjustment of mA and/or kV according to patient size. COMPARISON: [facility], CT, CT CHEST ABD PEL W CON, 11/16/2021, 22:57. FINDINGS: Image quality: Diagnostic. Lower Chest: No significant findings. ABDOMEN: Liver: No solid mass. Steatosis. Gallbladder: No radiopaque gallstones or wall thickening. Biliary ducts: No biliary dilation. Pancreas: No ductal dilation. Spleen: Size is within normal limits. Adrenal Glands: No adrenal nodules. Kidneys and Ureters: No hydronephrosis. Bilateral renal cystic foci with area of calcifications most prominent on the left. Areas asymmetric renal atrophy and cortical thinning most prominent Stomach and Bowel: Normal colonic caliber, without significant wall thickening. Colonic diverticula without inflammatory change. Peritoneum: No abnormal intraperitoneal fluid. No free air. Ventral Wall: No significant ventral hernia. Abdominal Nodes: No retroperitoneal or mesenteric adenopathy by size criteria. Vessels: Aorta and inferior vena cava are normal in size. PELVIS: Pelvic Organs: Unremarkable. Bladder: No bladder wall thickening, accounting for underdistention. Pelvic Nodes: No enlarged lymph nodes. Miscellaneous: No inguinal hernias are seen. Bones: No aggressive osseous abnormality. IMPRESSION: Hepatic steatosis. Gallbladder is unremarkable. Areas of cystic change, atrophy and calcification within the kidneys bilaterally suggestive of prior infection, inflammation or potentially obstruction. Wall cystic malignancy cannot be definitively excluded is felt to be less likely given. Appearance of stability. Dictated by: Joyce Velarde M.D. on 05/16/2024 at 20:44 Approved by: Joyce Velarde M.D. on 05/16/2024 at 20:47
[2024-05-16 20:05] LABS: RBC Urine None Seen (0-5/HPF); Urine Volume 10mL (spun)
[2024-05-16 20:06] LABS: Bacteria Urine Moderate (10-30); Culture Indicated Urine Cult Not Indicated; Squamous Epithelial Cell Urine 1-5 /HPF (0-5/HPF); WBC Urine None Seen (0-5/HPF)
[2024-05-16 20:49] VITALS: BP 128/74; PULSE 74; O2SAT 99
[2024-05-16 21:00] VITALS: BP 130/71; PULSE 75; O2SAT 98
== END 2024-05-16 21:20 | disposition home or self-care (01) ==
PROVIDERS: Emergency Provider Emergency Medicine
DX: R10.13 Epigastric pain (principal); R11.2 Nausea with vomiting, unspecified; F17.290 Nicotine dependence, other tobacco product, uncomplicated
CPT/HCPCS: 74177; 76705; 80053; 81001; 81003; 81025; 83690; 85025; 93005; 96374; 96375; 99283; 99284; J2405; Q9967